=== PATIENT | female | born 1980 | race Caucasian/White ===

== ENCOUNTER → 2018-12-31 09:49 | Outpatient (CLI) | payer OTHER, MEDICAID, SELFPAY ==
--- NOTE | 2018-12-31 | DI.US.S_ITS ---
PROCEDURE: US OB LIMITED INDICATIONS: OUTSIDE/PRIOR DATING DATA: Last menstrual period (LMP): 08/12/18. LMP-based estimated date of delivery (SURINDER): 05/19/19. TECHNIQUE: Real-time scanning was performed of the fetus, with image documentation and biometric measurements. Endovaginal scanning: No COMPARISON: None. FINDINGS: General: A single living intrauterine gestation is present. Presentation: Vertex. Placenta: Placental position is posterior, without previa. Amniotic fluid index: Not obtained. heart rate: 147 beats per minute. beats per minute. Maternal cervical canal: 5.0 cm long. Normal lower limit is 2.5 cm. IMPRESSION: Limited exam demonstrating single living intrauterine gestation in vertex presentation. At the patient's request, the examination was ended and no additional imaging was performed. Dictated by: Kin Corrigan [facility] Interpreted: Camacho Kern MD on 12/31/2018 at 11:38 Approved by: Camacho Kern M.D. on 01/01/2019 at 11:26
== END ==
PROVIDERS: Visit Provider Nurse Practitioner Obstetrics & Gynecology
DX: Z34.02 Encounter for supervision of normal first pregnancy, second trimester (principal); Z3A.20 20 weeks gestation of pregnancy
CPT/HCPCS: 76815

== ENCOUNTER → 2019-05-01 17:58 | Outpatient (ROUT) | payer OTHER, SELFPAY | PROVIDERS: Visit Provider Nurse Practitioner Obstetrics & Gynecology | DX: Z36.85 Encounter for antenatal screening for Streptococcus B (principal) | CPT/HCPCS: 87081 ==

== ENCOUNTER 2019-05-21 23:19 | Inpatient (IN) | payer OTHER, SELFPAY ==
--- NOTE | 2019-05-21 23:46 | P.HPOB_ITS ---
OB HPI Date/Time Date of admission: 05/21/19 Date Patient Seen: 05/21/19 Time Patient Seen: 11:35 History of Present Condition Chief complaint: LABOR : 1 Para: 0 Estimated Date of Delivery: 05/19/19 Estimated Gestational Age (weeks): 40.2 Narrative: Irina Lundberg is a 39 year old female primipara @ 40wks 2days by LMP and 8wk US presenting for evaluation of active labor. Contractions started this afternoon and have steadily increased in frequency and intensity. +FM. No vaginal bleeding or leaking of fluid. Routine PN care w/ CNM. Desires low intervention . Declines saline lock IV. , Juancarlos, is present and supportive. History of Present care: limited care (Patient declined anatomy scan US, glucose tolerance test and growth US for S<D), initiated at week # (8), number of visits (12) and pounds weight gain (23) Dating criteria: LMP confirmed by 1st trimester US Ultrasounds: normal 1st trimester US and other (posterior placenta and normal cervical length verified @ 20 wks) Obstetrical complications: none Medical complications: none Preadmission Labs Blood type: AB (+) positive -: Antibody screen: negative, GBS status: negative, HBsAG: negative, HIV: negative and RPR/VDLR: negative -: Chlamydia screen: not detected and Gonorrhea screen: not detected -: Rubella: immune HCT: 36.2 HCAB: negative PAP: Normal Cell-free DNA: Negative/male Narrative: Normal QID BGs x2 weeks from 27-29wks Evaluation Evaluation Baseline heart rate: 120 Variability: Moderate (11-25) monitor accelerations: Present monitor decelerations: Absent Contraction Frequency (minutes): 5 Category of Tracing: II Cervical dilation (cm): 4 Cervical effacement (%): 100 station: -1 [facility] Social History (Updated 05/22/19 @ 00:07 by Cassidy Kraus CNM) marital status: household members: spouse and other lives independently: Yes education level: college occupational status: employed current occupational exposures/hazards: No Smoking Status: Never smoker Meds Home Medications and Allergies Home Medications Medication Instructions Recorded Confirmed Type 1 tab PO DAILY 05/22/19 05/22/19 History Allergies Allergy/AdvReac Type Severity Reaction Status Date / Time No Known Drug Allergies Allergy Verified 05/22/19 00:07 Review of Systems Review of Systems ROS: Yes All systems reviewed with the patient and are negative except as otherwise documented Exam Vital Signs (past 8 hours): BP 129/78, HR54, T36.5C temporal Resp Effort & Inspection: normal respiratory effort Auscultation: clear to auscultation bilaterally Cardio Rate: regular rate Rhythm: regular rhythm Heart Sounds: S1 normal and S2 normal Uterus Location (Fundal Height): 37 Presentation: vertex Objective Labs Result Diagrams: 05/22/19 00:10 05/22/19 00:10 Assessment and Plan Assessment and Plan Assessment and Plan narrative: Admit, routine orders w/ CBC, T&S, random glucose and HgbA1c. May switch to intermittent auscultation after 20 minutes of Cat I FHR tracing. Labor support PRN. Reassess in 4 hours or sooner, PRN.
[2019-05-22 00:26] LABS: Add Manual Diff / Slide Review NO; Basophils Absolute Auto 0 /uL (0-100); Basophils Percent Auto 0.5 % (0-2); Eosinophils Absolute Auto 0 /uL (0-450); Eosinophils Percent Auto 0.4 % (2-4); Hemoglobin 13.6 g/dL (12.0-16.0); Lymphocytes Absolute Auto 1500 /uL (1100-4500); Lymphocytes Percent Auto 20.4 % (25-40); Mean Corpuscular HGB Conc 34.8 % (30-36); Monocytes Absolute Auto 500 /uL (0-900); Monocytes Percent Auto 6.3 % (3-14); Neutrophils Absolute Auto 5500 /uL (1500-7000); Neutrophils Percent Auto 72.4 % (50-75); Platelet Count 170 X10^3/uL (150-400); Red Blood Cell Count 4.24 X10^6/uL (4.0-5.2); Red Cell Distribution Width 12.6 % (11.6-14.8); White Blood Cell Count 7.5 X10^3/uL (4.5-11.0)
[2019-05-22 00:35] LABS: Glucose 89 mg/dL (70-100)
[2019-05-22 00:54] LABS: Hemoglobin A1C% w Est Avg Glu 4.9 % (4.0-6.0)
[2019-05-22 01:25] VITALS: BP 128/68
--- NOTE | 2019-05-22 03:59 | PM.OBPNLAB ---
Date/Time Date Patient Seen: 05/22/19 Time Patient Seen: 03:30 Pain Control Pain control: tolerating well Pelvic Exam Dilation (cm): 5 Effacement (%): 100 station: 0 Amniotic membrane status: Ruptured Comments: AROM forebag for moderate amount of light yellow meconium Contractions Contractions on admission: regular Monitor mode: Palpation Pitocin rate (mU/min): 0 Contraction frequency (min): 5 Contraction duration (min): 90 Contraction pattern: Regular Contraction intensity: Strong/Firm Status status: Category l Heart Rate Baseline: 130 Comments: reassuring by intermittent auscultation, regular, no decreases Assessment and Plan Assessment: active labor Plan: continuous present management Comments: Recommend tub for labor support at this time. Reassess in 4 hours or sooner, PRN.
--- NOTE | 2019-05-22 07:47 | PM.OBPNLAB ---
Date/Time Date Patient Seen: 05/22/19 Time Patient Seen: 07:40 Pain Control Pain control: other (Nitrous oxide) Comments: VS: HR 72bpm, BP 113/67, SpO2 97% Pelvic Exam Dilation (cm): 7 Effacement (%): 100 station: 0 Amniotic membrane status: Leaking Contractions Contractions on admission: regular Monitor mode: Palpation Pitocin rate (mU/min): 0 Contraction frequency (min): 2 Contraction duration (min): 90 Contraction pattern: Regular Contraction phase: Contraction Contraction intensity: Strong/Firm Status status: Category ll Heart Rate Baseline: 135 Monitor Accelerations: Present Monitor Decelerations: Early Monitor Variability: Moderate Assessment and Plan Assessment: active labor Plan: continuous present management
--- NOTE | 2019-05-22 15:18 | PM.OBPRVD ---
 Events: Meconium Stained Fluid Labor & Delivery Delivery date: 05/22/19 Intrapartal events: None Cervical ripening method: none Induction method: none Delivery augmentation: rupture of membranes Delivery monitor: external FHT and external uterine Route of delivery: L&D Laceration Description: Perineal - 2nd Degree Delivery repair: chromic (3.0) Estimated blood loss (mL): 150 Anesthesia type: Other (Nitrous Oxide during labor and local w/ nitrous oxide for repair) Narrative: Patient labored well with nitrous oxide, feeling increasing rectal pressure with spontaneous urge to push @ 1200. Patient guided pushing was minimally effective w/ exam of C/C/+2 @ 1232 and more focused, guided pushing @ 1324. Cat II FHR for recurrent variables remained overall reassuring. 3rd NRP provider was called to room at moderate crown for meconium stained amniotic fluid. NSVB of a vigorous baby boy in GUILLERMO position w/ no NC and easy delivery of the shoulders @ 1437. Cord was short and was placed on maternal pevis for drying and skin to skin. Pitocin 10 units IM was given in LVL for AMTSL. After cessation of pulsation, the FOB requested 1-2 more minutes of DCC. Cord was double clamped by CNM and cut by FOB at that time. Gentle cord traction and maternal push led to spontaneous, Schultze delivery of an apparently intact placenta, membranes and 3VC. Fundus immediately firm and bleeding minimal. 2nd degree perineal laceration was repaired w/ 3.0 chromic under 1% lidocaine local and nitorus oxide analgesia. Good hemostasis and approximation was achieved. QBL 150mL. Both mother and baby stable and skin to skin as I left the room. Baby 1: gender: Male Presentation: vertex Placenta delivery description: Spontaneous cord vessel description: 3 Vessels score (1 min): 9 score (5 min): 9 Plan for aftercare: Routine PP orders. Anticipate D/C to home @ 18 hours.
[2019-05-22] MEDS: DOCUSATE 100 MG CAPSULE PO (20:13)
[2019-05-22] MEDS: IBUPROFEN 600 MG TABLET PO (20:13)
[2019-05-22] MEDS: DERMOPLAST SPRAY 20% 60 ML 1 SPRAY TOP (20:14)
[2019-05-23] MEDS: IBUPROFEN 600 MG TABLET PO (03:17)
--- NOTE | 2019-05-23 07:33 | PM.OBDS.1 ---
Discharge Providers Provider Date of admission: 05/21/19 23:19 Discharge Date: 05/23/19 Primary care physician: Not established Consults: 05/23/19 15:16 Consult to [facility] Routine Comment: Discharge provider: Cassidy Kraus CNM Summary Hospital Course Date Patient Seen: 05/23/19 Time Patient Seen: 07:00 Hospital Course: Pt sitting up in bed, feeling well. Pain is well controlled w/ ibuprofen, declined Tylenol. Voiding and ambulating independently. independently, though anxious about her ability to do so. Vaginal bleeding is moderate, no clots. Tolerating general diet. has not yet had a BM. Eager for d/c to home. Peripartum Data Delivery Method: Natural Vaginal Laceration description: Perineal - 2nd Degree complications: none [place] 1: Gender: Male Disposition of : home Discharge Diagnosis (1) Second degree perineal laceration during delivery: Status: Acute Status at Discharge Cognitive/behavioral status at discharge: oriented Overall status at discharge: patient is progressing back to baseline Time Spent with Patient Time attestation: Total time spent providing and/or coordinating discharge services: Time spent: Greater than 30 minutes Specific discharge activities: Confrontational discussion with patient's spouse: Spouse requested Rx for narcotic for the patient as she declines to take Tylenol. Counseled that Tylenol and ibuporfen are recommended and narcotics are only indicated if pain is not covered after taking Tylenol and ibuprofen. Pt's pain has been relieved by ibuprofen thus far. Spouse disagrees about safety of Tylenol at PO dosing of 650mg Q6 hours and is upset that PRN narcotics will not be prescribed at discharge. Objective Labs Result Diagrams: 05/22/19 00:10 05/22/19 00:10 Exam Vital Signs (past 8 hours): BP 107/67, HR69. RR18. T98.9 Other: Fundus firm @ U-2, lochia light Perineum well approximated, mild edema. Psych Appearance: grossly normal and well kempt Discharge Plan Discharge Plan Patient Disposition: Home Discharge orders & Medications Prescriptions: New acetaminophen 325 mg Tablet 650 mg PO Q6HR PRN (Reason: Pain, Mild (1-3)) 14 Days Qty: 60 RF: 0 Dermoplast (with menthol) 20-0.5 % Aerosol 1 spray topical Q1HR PRN (Reason: perineal pain) 7 Days Qty: 1 RF: 0 docusate sodium [DOK] 100 mg Capsule 100 mg PO BID 14 Days Qty: 28 RF: 0 ibuprofen 600 mg Tablet 600 mg PO Q6HR PRN (Reason: Pain, Mild (1-3)) 14 Days Qty: 60 RF: 0 Lyx-P-Ajtocy Cream 1 applic topical PRN PRN (Reason: Tenderness) 365 Days Qty: 60 RF: 2 Continued tablet 1 tab PO DAILY RF: 0 Follow up/Referrals: Cassidy Kraus CNM [[employer] Director] - (Pt has appointment on 06/03 and 07/01 @ 1400 with SILVANA Kraus) Diet/Activity/Treatments Diet: Regular Skin/Wound/Dressing Care Report to your healthcare provider any signs of infection, such as:: chills, fever and increased pain Visit Report/Discharge Packet Instructions: Depression Stand Alone Forms: Discharge: Care
[2019-05-23 09:42] VITALS: BP 103/68; PULSE 82; RESP 16; TEMP 37.2
[2019-05-23 09:50] VITALS: BP 103/68; PULSE 82; RESP 16; TEMP 37.2
== END 2019-05-23 11:50 | disposition home or self-care (01) | DRG 807 ==
PROVIDERS: Admitting Provider Nurse Practitioner Obstetrics & Gynecology; Referring Provider Nurse Practitioner Obstetrics & Gynecology; Visit Provider Nurse Practitioner Obstetrics & Gynecology
DX: O70.1 Second degree perineal laceration during delivery (principal); Z37.0 Single live birth; Z3A.40 40 weeks gestation of pregnancy; O77.0 Labor and delivery complicated by meconium in amniotic fluid
CPT/HCPCS: 36415; 59050; 82947; 83036; 85025; 86850; 86900; 86901; G0379